=== PATIENT | female | born 1945 | race Caucasian/White ===

== ENCOUNTER 2022-07-08 13:43 | Inpatient (IN) | payer OTHER ==
[~2022-07-08] VITALS: Ht 157.5 cm; Wt 58.5 kg
[2022-07-08 14:30] VITALS: BP_SYST 108
--- NOTE | 2022-07-08 14:37 | NUR ---
Placed in room 2 . Placed on monitoring analyst, blood pressure machine and pulse oximeter. To gown for exam. Side rails up.
--- NOTE | 2022-07-08 15:22 | NUR ---
PT COMES FROM URGENT CARE FOR C/O PETER LOWER EXTREMITIES EDEMA X 3 WEEKS, GRADUALLY GETTING WORSE IN THE LAST WEEK. STATES SHE HAS MODERATE SOB WITH MILD EXERTION,, UNABLE TO WALK WITHOUT ASSISTANCE. DTR AT BEDSIDE. PT DENIES ANY CP, ON RA @95%. RESP EVEN AND UNLABORED, SPEAKING FULL CLEAR SENTENCES. SKIN W/D/I, SCLERA-WNL. AAOX3, LIVES AT HOME. PT ALSO REPORTS LIVER CIRRHOSIS, ABDOMEN LARGE/DISTENDED/SOFT, MILDLY TENDER TO PALPATION. LAST PARACENTESIS 3 YEARS AGO[address] PT OF [address] BEARD IN [place]. WILL CONT TO MONITOR CLOSELY.
--- NOTE | 2022-07-08 16:03 | NUR ---
DR GILLIS IN ROOM FOR EXAM
[2022-07-08 18:34] LABS: BASOPHILS # (AUTO) 0.1 K/uL (0.0-0.2); BASOPHILS % (AUTO) 0.8 % (0.0-2.0); EOSINOPHILS # (AUTO) 0.2 K/uL (0.0-0.4); EOSINOPHILS % (AUTO) 1.4 % (0.0-4.0); HEMATOCRIT 42.1 % (36-48); HEMOGLOBIN 14.5 g/dL (12.0-16.0); LYMPHOCYTES # (AUTO) 1.9 K/uL (1.0-5.5); MEAN CORPUSCULAR HEMOGLOBIN 38 pg (27-31); MEAN CORPUSCULAR HGB CONC 34 % (32-36); MEAN CORPUSCULAR VOLUME 110 fL (79.0-98.0); MONOCYTES # (AUTO) 1.5 K/uL (0.0-1.0); MONOCYTES % (AUTO) 13.8 % (1.7-9.3); NEUTROPHILS # (AUTO) 7.1 K/uL (1.8-7.7); PLATELET COUNT (AUTO) 140 K/uL (130-430); RED BLOOD CELL COUNT(AUTO) 3.82 MIL/uL (4.2-6.2); RED CELL DISTRIBUTION WIDTH 15.7 % (9.0-15.0); WHITE BLOOD COUNT (AUTO) 10.8 K/uL (4.8-10.8)
--- NOTE | 2022-07-08 18:42 | NUR ---
NO ACUTE CHNAGES IN CONDITION, PT USING IPAD IN ROOM, DENIES ANY PAIN OR SOB AT THIS TIME
[2022-07-08 18:47] LABS: ANION GAP 9 (5-15); CALCIUM 9.4 mg/dL (8.4-11.0); CHLORIDE 97 mmol/L (98-107); CREATININE 4.51 mg/dL (0.55-1.30); GLUCOSE 105 mg/dL (70-99); UREA NITROGEN, BLOOD 30 mg/dL (8-21)
[2022-07-08 18:52] LABS: ALANINE AMINOTRANSFERASE 22 U/L (12-78); ALBUMIN 2.2 g/dL (3.4-4.8); ASPARTATE AMINOTRANSFERASE 82 U/L (10-37); TOTAL BILIRUBIN 3.3 mg/dL (0.0-1.0)
--- NOTE | 2022-07-08 19:31 | NUR ---
FIRST CONTACT WITH PT. ASSESSMENT COMPLETED. PT C/O THAT SHE WAS HUNGRY BECAUSE SHE HAD NOT EATEN SINCE 1 PM. PT GIVEN SNACK FROM PT FRIG.
[2022-07-08] MEDS ORDERED: NEU300 PO (20:03)
--- NOTE | 2022-07-08 20:03 | NUR ---
Medication list provided by martinez Mendez. Med rec completed.
[2022-07-08] MEDS ORDERED: AZITHROMYCIN 500 MG in NS 250 ML IV ONE (20:15)
[2022-07-08] MEDS ORDERED: cefTRIAXone 1 GM IVPB PREMIX 50 ML IV ONE (20:15)
--- NOTE | 2022-07-08 20:17 | NUR ---
Note joseone in EDM - 07/08/22 at 2022 by MOHAMUD Admit bed requested Patient will be admitted to care of Dr.RIZVI Stevens Admitted to TELE unit. Diagnosis CIRRHOSIS,WEAKNESS,RENAL FAILURE Inpatient (Yes or No) YES Observation (Yes or No) NO Orientation concerns or request close to nursing station (Yes or No) NO Covid Status NEGATIVE On vent or bipap NO Isolation requirements NO Needs a sitter NO From Home (Yes or if No enter name of facility) YES Requires Dialysis (Yes or No) NO Med Rec Completed (Yes of No) YES
--- NOTE | 2022-07-08 20:23 | NUR ---
Admit bed requested Patient will be admitted to care of Dr.RIZVI Stevens Admitted to TELE unit. Diagnosis CIRRHOSIS,WEAKNESS,RENAL FAILURE Inpatient (Yes or No) YES Observation (Yes or No) NO Orientation concerns or request close to nursing station (Yes or No) NO Covid Status PENDING On vent or bipap NO Isolation requirements NO Needs a sitter NO From Home (Yes or if No enter name of facility) YES Requires Dialysis (Yes or No) NO Med Rec Completed (Yes of No) YES
--- NOTE | 2022-07-08 20:38 | NUR ---
MD GALLARDO @ BEDSIDE TO DISCUSS ADMISSION PLANS WITH PT AND FAMILY.
[2022-07-08] MEDS ORDERED: AZITHROMYCIN 500 MG/VIAL (ZITHROMAX) IV ONE (21:44)
--- NOTE | 2022-07-08 22:00 | NUR ---
PT RESTING QUIETLY WITH NO SIGNS OF DISTRESS.
--- NOTE | 2022-07-08 22:40 | NUR ---
ADMISSION NOTE Received patient from ER via rransom assisting by Kassandra ER nurse endorsed at bedside. Patient admitted with diagnosis of cirrhosis, weakness/renal failure . Patient is awake, alert, oriented X 4. Patient oriented to hospital room, call light, toileting, pain management and safety-teach back done. Patient informed that Aureliano will be his nurse and that her room number is 120-B. Confirmed with Aureliano RN at bedside prior places telemetry box on patient with ,name,and telemetry box number. Personal belongings checked and Belongings List documented. Fall precaution in place, side rails x2. Call light within reach. Endorsed to Aureliano-RN to continuity of care.
[2022-07-08 22:54] VITALS: BP_SYST 115
--- NOTE | 2022-07-08 23:05 | NUR ---
Patient will be admitted to care of DR MOSQUERA. Admitted to TELE unit. Will go to room 120B . Belongings list completed. Complete and up to date summary report printed. SBAR report to be given at bedside with opportunity for questions.
[2022-07-09] VITALS: BP_SYST 118
--- NOTE | 2022-07-09 02:26 | NUR ---
CONSULTATION PAGED REASON FOR CONSULTATION: PNA WAS CONSULT CALLED? Y PERSON WHO WAS NOTIFIED: LD CONSULTING PHYSICIAN: DEN EMBRYOLOGY TEACHER SPECIALTY: ID EMBRYOLOGY TEACHER PHONE NUMBERER: [phone] REQUESTING PHYSICIAN: KARI MOSQUERA
--- NOTE | 2022-07-09 03:59 | NUR ---
CONSULTATION PAGED REASON FOR CONSULTATION: PNA WAS CONSULT CALLED? Y PERSON WHO WAS NOTIFIED: KYLER CONSULTING PHYSICIAN: PAU WOMEN NURSE SPECIALTY: PULMOP WOMEN NURSE PHONE NUMBER: [phone] REQUESTING PHYSICIAN: EVELINE
--- NOTE | 2022-07-09 04:53 | NUR ---
CONSULTATION PAGED REASON FOR CONSULTATION: CIRRHOSIS WAS CONSULT CALLED? Y PERSON WHO WAS NOTIFIED: LD CONSULTING PHYSICIAN: JD MANAGER HOME HEALTHCARE SPECIALTY: GI MANAGER HOME HEALTHCARE PHONE NUMBER: [phone] REQUESTING PHYSICIAN: KARI MOSQUERA
[2022-07-09 08:50] VITALS: BP_SYST 122
[2022-07-09] MEDS: AZITHROMYCIN 500 MG in NS 250 ML IV SCH (09:52)
[2022-07-09] MEDS: cefTRIAXone 1 GM IVPB PREMIX 50 ML IV SCH (09:53)
[2022-07-09 11:19] VITALS: BP_SYST 122
[2022-07-09] MEDS ORDERED: FOLIC ACID 1 MG TABLET PO ONE (13:30)
[2022-07-09] MEDS ORDERED: MULTIVITAMINS TAB 1 TABLET PO ONE (13:30)
[2022-07-09] MEDS ORDERED: THIAMINE HCL 100 MG TABLET PO ONE (13:30)
[2022-07-09 14:14] LABS: ANION GAP 10 (5-15); CALCIUM 8.8 mg/dL (8.4-11.0); CHLORIDE 95 mmol/L (98-107); CREATININE 4.52 mg/dL (0.55-1.30); GLUCOSE 144 mg/dL (70-99); UREA NITROGEN, BLOOD 30 mg/dL (8-21)
[2022-07-09 16:12] VITALS: BP_SYST 127
[2022-07-09] MEDS ORDERED: NALOXONE HCL 0.4 MG/ML AMP (NARCAN) IVP PRN (16:45)
[2022-07-09] MEDS: OCTREOTIDE ACETATE 100 MCG/ML AMP SUBCUT SCH ×2 (16:47→22:45)
[2022-07-09] MEDS: ALBUMIN HUMAN 25% 100 ML IV SCH ×2 (16:47→22:47)
[2022-07-09 20:00] VITALS: BP_SYST 91
[2022-07-10] VITALS: BP_SYST 103
[2022-07-10] MEDS: OCTREOTIDE ACETATE 100 MCG/ML AMP SUBCUT SCH ×3 (05:30→21:41)
[2022-07-10] MEDS: ALBUMIN HUMAN 25% 100 ML IV SCH (05:30)
[2022-07-10 05:51] LABS: BASOPHILS # (AUTO) 0.1 K/uL (0.0-0.2); BASOPHILS % (AUTO) 0.8 % (0.0-2.0); EOSINOPHILS # (AUTO) 0.2 K/uL (0.0-0.4); EOSINOPHILS % (AUTO) 2.3 % (0.0-4.0); HEMATOCRIT 35.4 % (36-48); LYMPHOCYTES # (AUTO) 1.5 K/uL (1.0-5.5); LYMPHOCYTES % (AUTO) 22.4 % (20.5-51.5); MEAN CORPUSCULAR HEMOGLOBIN 38 pg (27-31); MEAN CORPUSCULAR HGB CONC 34 % (32-36); MEAN CORPUSCULAR VOLUME 110 fL (79.0-98.0); MONOCYTES # (AUTO) 0.9 K/uL (0.0-1.0); MONOCYTES % (AUTO) 13.6 % (1.7-9.3); NEUTROPHILS # (AUTO) 4.2 K/uL (1.8-7.7); NEUTROPHILS % (AUTO) 60.9 % (40.0-70.0); PLATELET COUNT (AUTO) 99 K/uL (130-430); RED BLOOD CELL COUNT(AUTO) 3.21 MIL/uL (4.2-6.2); RED CELL DISTRIBUTION WIDTH 15.5 % (9.0-15.0); WHITE BLOOD COUNT (AUTO) 6.9 K/uL (4.8-10.8)
[2022-07-10 06:09] LABS: ALANINE AMINOTRANSFERASE 15 U/L (12-78); ALBUMIN 2.9 g/dL (3.4-4.8); ANION GAP 12 (5-15); ASPARTATE AMINOTRANSFERASE 53 U/L (10-37); CALCIUM 8.8 mg/dL (8.4-11.0); CHLORIDE 98 mmol/L (98-107); CREATININE 4.51 mg/dL (0.55-1.30); GLUCOSE 79 mg/dL (70-99); TOTAL BILIRUBIN 3.1 mg/dL (0.0-1.0); UREA NITROGEN, BLOOD 31 mg/dL (8-21)
[2022-07-10 06:18] LABS: INR 1.6 (0.8-1.2); PROTHROMBIN TIME 16.3 SECS (9.5-12.5)
--- NOTE | 2022-07-10 07:31 | NUR ---
pt had 1 bm last night. pt has been npo since midnight. pt denied pain during shift. abd distended since admission
[2022-07-10 08:00] VITALS: BP_SYST 101
[2022-07-10] MEDS: FOLIC ACID 1 MG TABLET PO SCH (09:34)
[2022-07-10] MEDS: THIAMINE HCL 100 MG TABLET PO SCH (09:35)
[2022-07-10] MEDS: MULTIVITAMINS TAB 1 TABLET PO SCH (09:35)
[2022-07-10] MEDS: AZITHROMYCIN 500 MG in NS 250 ML IV SCH (09:37)
[2022-07-10] MEDS: cefTRIAXone 1 GM IVPB PREMIX 50 ML IV SCH (09:37)
[2022-07-10 13:13] VITALS: BP_SYST 101
[2022-07-10] MEDS: MORPHINE 2 MG/ML INJ. SYRINGE IVP PRN ×2 (14:54→21:48)
[2022-07-10 17:27] VITALS: BP_SYST 147
--- NOTE | 2022-07-10 19:15 | NUR ---
OPENING NOTE REPORT RECEIVED FROM DAYSHIFT NURSE. PATIENT RECEIVED LYING IN BED, AWAKE, WATCHING TV. DENIES PAIN. BREATHING EVEN AND UNLABORED, NO S/S OF ACUTE DISTRESS. IV SITE PATENT, NO SIGNS OF INFILTRATION OR INFECTION NOTED. CALL LIGHT WITH PATIENT. BED ALARM ON. BED IS LOCKED AND AT LOWEST POSITION. WILL CONTINUE TO MONITOR.
[2022-07-10 20:00] VITALS: BP_SYST 114
--- NOTE | 2022-07-10 23:00 | NUR ---
ROUNDS PATIENT IN BED, RESTING. NO SIGNS OF DISCOMFORT. CHEST RISE AND FALL EVEN BILATERALLY. ALL NEEDS MET. WILL MONITOR.
[2022-07-11 01:22] VITALS: BP_SYST 111
--- NOTE | 2022-07-11 03:00 | NUR ---
ROUNDS NO CHANGE FROM PREVIOUS. ALL NEEDS MET. WILL MONITOR.
[2022-07-11] MEDS: OCTREOTIDE ACETATE 100 MCG/ML AMP SUBCUT SCH ×3 (06:10→21:34)
--- NOTE | 2022-07-11 06:48 | NUR ---
CLOSING NOTE PATIENT IN BED, RESTING. NO S/S OF ACUTE DISTRESS. BREATHING EVEN AND UNLABORED. HOB RAISED, NASAL CANULA ATTACHED PROPERLY, ON 2L OF OXYGEN. IV SITE PATENT, NO SIGNS OF INFILTRATION OR INFECTION NOTED. ALL NEEDS MET THROUGHOUT SHIFT. FALL, SAFETY PRECAUTIONS MAINTAINED THROUGHOUT SHIFT. WILL CONTINUE TO MONITOR UNTIL PATIENT CARE IS ENDORSED TO ONCOMING DAYSHIFT NURSE.
--- NOTE | 2022-07-11 07:30 | NUR ---
Initial Note: Report received from night warehouse manager nurse. Awake and alert x4. Call light in reach. Bed in the lowest position. Side rails x2 up. Call light in reach. Instructed to call nurse or nursing aid for any help. Assessment is done and vital checked. Will continue patient care.
[2022-07-11 08:00] VITALS: BP_SYST 113
[2022-07-11 08:06] LABS: FERRITIN 417 ng/mL (15-150)
[2022-07-11] MEDS: cefTRIAXone 1 GM IVPB PREMIX 50 ML IV SCH (08:20)
[2022-07-11] MEDS: FOLIC ACID 1 MG TABLET PO SCH (10:06)
[2022-07-11] MEDS: THIAMINE HCL 100 MG TABLET PO SCH (10:06)
[2022-07-11] MEDS: MULTIVITAMINS TAB 1 TABLET PO SCH (10:06)
[2022-07-11] MEDS: AZITHROMYCIN 500 MG in NS 250 ML IV SCH (10:07)
[2022-07-11] MEDS: MORPHINE 2 MG/ML INJ. SYRINGE IVP PRN (10:12)
--- NOTE | 2022-07-11 10:32 | NUR ---
Note: patient is awake and alert. Complained 7/10 ABD pain. pain med provided. Will continue to monitor.
--- NOTE | 2022-07-11 10:51 | NUR ---
CONSULTATION PAGED/CALLED Reason for Consultation: VIDYA Person Who was Notified: MANUEL Consulting Physician: COLT MCKINNEY Senior Quantity Surveyor Specialty: Ordering Physician: INOCENCIO PÉREZ
[2022-07-11 11:00] LABS: EOSINOPHILS # (AUTO) 0.1 K/uL (0.0-0.4); LYMPHOCYTES # (AUTO) 1.3 K/uL (1.0-5.5); MEAN CORPUSCULAR HEMOGLOBIN 38 pg (27-31); MONOCYTES % (AUTO) 15.1 % (1.7-9.3)
[2022-07-11 11:04] LABS: BASOPHILS # (AUTO) 0.1 K/uL (0.0-0.2); BASOPHILS % (AUTO) 0.7 % (0.0-2.0); EOSINOPHILS % (AUTO) 1.4 % (0.0-4.0); HEMATOCRIT 37.1 % (36-48); HEMOGLOBIN 12.4 g/dL (12.0-16.0); MEAN CORPUSCULAR HGB CONC 33 % (32-36); MEAN CORPUSCULAR VOLUME 114 fL (79.0-98.0); MONOCYTES # (AUTO) 1.5 K/uL (0.0-1.0); PLATELET COUNT (AUTO) 72 K/uL (130-430); RED BLOOD CELL COUNT(AUTO) 3.27 MIL/uL (4.2-6.2); RED CELL DISTRIBUTION WIDTH 15.8 % (9.0-15.0); WHITE BLOOD COUNT (AUTO) 10.1 K/uL (4.8-10.8)
[2022-07-11 11:06] LABS: HEPATITIS A AB, IgM Negative (Negative); HEPATITIS B CORE AB, IgM Negative (Negative); HEPATITIS B SURFACE AG Negative (Negative)
[2022-07-11 11:06] LABS: NEUTROPHILS % (AUTO) 69.8 % (40.0-70.0)
[2022-07-11 11:20] LABS: ANION GAP 14 (5-15); CALCIUM 7.6 mg/dL (8.4-11.0); CHLORIDE 100 mmol/L (98-107); CREATININE 4.41 mg/dL (0.55-1.30); GLUCOSE 111 mg/dL (70-99); UREA NITROGEN, BLOOD 31 mg/dL (8-21)
[2022-07-11 11:22] LABS: HEPATITIS C VIRUS AB Negative <0.8 s/co (0.0-0.7)
--- NOTE | 2022-07-11 11:34 | NUR ---
Note: radiology department called to cancel the paracentesis due to not enough fluid. Patient and family made aware.
[2022-07-11 11:47] LABS: ALANINE AMINOTRANSFERASE 16 U/L (12-78); ALBUMIN 2.5 g/dL (3.4-4.8); ASPARTATE AMINOTRANSFERASE 57 U/L (10-37); BILIRUBIN,DIRECT 1.6 mg/dL (0.0-0.3); TOTAL BILIRUBIN 2.2 mg/dL (0.0-1.0)
[2022-07-11 12:00] VITALS: BP_SYST 96
--- NOTE | 2022-07-11 12:33 | NUR ---
Note: patient is sleeping. No pain or discomfort at this time. Call light in reach. Bed in the lowest position and side rails x2 up. Will continue to monitor.
--- NOTE | 2022-07-11 15:38 | NUR ---
Note: Physical therapy is here to evaluate and excise patient. Patient tolerated well. No pain or discomfort.
[2022-07-11 16:00] VITALS: BP_SYST 100
--- NOTE | 2022-07-11 18:25 | NUR ---
Closing Note: Patient is eating dinner. No pain or discomfort at this time. Call light in reach. Bed in the lowest position and side rails x2 up. Will endorse assistant shift supervisor nurse to continue patient care.
--- NOTE | 2022-07-11 19:15 | NUR ---
OPENING NOTE REPORT RECEIVED FROM DAYSHIFT NURSE. PATIENT RECEIVED LYING IN BED, AWAKE, WATCHING TV. NO S/S OF ACUTE DISTRESS. BREATHING EVEN AND UNLABORED. IV SITE PATENT, NO SIGNS OF INFILTRATION OR INFECTION NOTED. CALL LIGHT WITH PATIENT. BED ALARM ON. BED IS LOCKED AND AT LOWEST POSITION. WILL CONTINUE TO MONITOR.
--- NOTE | 2022-07-11 23:00 | NUR ---
INCONTINENT CARE PATIENT CLEANED. TOLERATED WELL. ALL NEEDS MET. WILL MONITOR.
--- NOTE | 2022-07-12 03:00 | NUR ---
ROUNDS PATIENT IN BED, RESTING. NO SIGNS OF DISCOMFORT. CHEST RISE AND FALL EVEN BILATERALLY. ALL NEEDS MET. WILL MONITOR.
--- NOTE | 2022-07-12 06:28 | NUR ---
CLOSING NOTE PATIENT IN BED, RESTING AT THIS TIME. NO S/S OF ACUTE DISTRESS. BREATHING EVEN AND UNLABORED. HOB RAISED, NASAL CANULA ATTACHED PROPERLY, ON 2L OF OXYGEN. IV SITE PATENT, NO SIGNS OF INFILTRATION OR INFECTION NOTED. ALL NEEDS MET THROUGHOUT SHIFT. FALL, SAFETY PRECAUTIONS MAINTAINED THROUGHOUT SHIFT. WILL CONTINUE TO MONITOR UNTIL PATIENT CARE IS ENDORSED TO ONCOMING DAYSHIFT NURSE.
[2022-07-12] MEDS: OCTREOTIDE ACETATE 100 MCG/ML AMP SUBCUT SCH ×3 (06:37→21:09)
[2022-07-12 08:00] VITALS: BP_SYST 127
[2022-07-12 08:21] LABS: BASOPHILS # (AUTO) 0.1 K/uL (0.0-0.2); BASOPHILS % (AUTO) 0.7 % (0.0-2.0); EOSINOPHILS # (AUTO) 0.1 K/uL (0.0-0.4); EOSINOPHILS % (AUTO) 1.1 % (0.0-4.0); HEMATOCRIT 37.1 % (36-48); HEMOGLOBIN 12.5 g/dL (12.0-16.0); LYMPHOCYTES # (AUTO) 1.5 K/uL (1.0-5.5); LYMPHOCYTES % (AUTO) 13.1 % (20.5-51.5); MEAN CORPUSCULAR HEMOGLOBIN 38 pg (27-31); MEAN CORPUSCULAR HGB CONC 34 % (32-36); MEAN CORPUSCULAR VOLUME 111 fL (79.0-98.0); MONOCYTES # (AUTO) 1.2 K/uL (0.0-1.0); NEUTROPHILS # (AUTO) 8.3 K/uL (1.8-7.7); PLATELET COUNT (AUTO) 84 K/uL (130-430); RED BLOOD CELL COUNT(AUTO) 3.33 MIL/uL (4.2-6.2); RED CELL DISTRIBUTION WIDTH 15.7 % (9.0-15.0); WHITE BLOOD COUNT (AUTO) 11.3 K/uL (4.8-10.8)
[2022-07-12] MEDS: MULTIVITAMINS TAB 1 TABLET PO SCH (08:30)
[2022-07-12] MEDS: THIAMINE HCL 100 MG TABLET PO SCH (08:30)
[2022-07-12] MEDS: FOLIC ACID 1 MG TABLET PO SCH (08:30)
[2022-07-12] MEDS: cefTRIAXone 1 GM IVPB PREMIX 50 ML IV SCH (08:31)
[2022-07-12 08:41] LABS: NEUTROPHILS % (AUTO) 74.1 % (40.0-70.0)
[2022-07-12 08:43] LABS: ALANINE AMINOTRANSFERASE 18 U/L (12-78); ALBUMIN 2.6 g/dL (3.4-4.8); ANION GAP 12 (5-15); ASPARTATE AMINOTRANSFERASE 65 U/L (10-37); C-REACTIVE PROTEIN QUANT 3.5 mg/dL (0-0.5); CHLORIDE 98 mmol/L (98-107); CREATININE 4.97 mg/dL (0.55-1.30); GLUCOSE 83 mg/dL (70-99); PHOSPHORUS 5.8 mg/dL (2.7-4.5); TOTAL BILIRUBIN 2.4 mg/dL (0.0-1.0); UREA NITROGEN, BLOOD 36 mg/dL (8-21)
[2022-07-12 09:00] LABS: ERYTHROCYTE SEDIMENTATION RATE 7 MM/HR (0-20)
[2022-07-12] MEDS: AZITHROMYCIN 500 MG in NS 250 ML IV SCH (09:39)
--- NOTE | 2022-07-12 09:57 | NUR ---
Received DC planning order: CREATIVE ENGAGEMENT DIRECTOR faxed order to [facility] for processing
[2022-07-12 12:00] VITALS: BP_SYST 91
[2022-07-12] MEDS: MORPHINE 2 MG/ML INJ. SYRINGE IVP PRN (13:42)
[2022-07-12 16:00] VITALS: BP_SYST 100
--- NOTE | 2022-07-12 18:34 | NUR ---
pt a&o, c/o pain in abd - morphine given as needed. nephrology saw pt - need to collect urine sample - pt does not have to go - will endorse to next shift. fall precautions in place. call tracy in reach.
[2022-07-12 20:00] VITALS: BP_SYST 106
[2022-07-12] MEDS: MIDODRINE HCL 5 MG TABLET (PROAMATINE) PO SCH (21:09)
--- NOTE | 2022-07-12 23:00 | NUR ---
INCONTINENT CARE PATIENT CLEANED. TOLERATED WELL. ALL NEEDS MET. WILL MONITOR.
[2022-07-13] VITALS: BP_SYST 112
--- NOTE | 2022-07-13 03:00 | NUR ---
ROUNDS PATIENT RESTING, NO SIGNS OF DISCOMFORT. ALL NEEDS MET. WILL MONITOR.
[2022-07-13] MEDS: OCTREOTIDE ACETATE 100 MCG/ML AMP SUBCUT SCH ×3 (05:50→20:37)
[2022-07-13 05:53] LABS: BASOPHILS # (AUTO) 0.4 K/uL (0.0-0.2); EOSINOPHILS # (AUTO) 0.2 K/uL (0.0-0.4); EOSINOPHILS % (AUTO) 0.8 % (0.0-4.0); HEMATOCRIT 33.9 % (36-48); HEMOGLOBIN 11.5 g/dL (12.0-16.0); LYMPHOCYTES # (AUTO) 1.7 K/uL (1.0-5.5); LYMPHOCYTES % (AUTO) 8.7 % (20.5-51.5); MEAN CORPUSCULAR HEMOGLOBIN 37 pg (27-31); MEAN CORPUSCULAR HGB CONC 34 % (32-36); MEAN CORPUSCULAR VOLUME 109 fL (79.0-98.0); MONOCYTES # (AUTO) 1.5 K/uL (0.0-1.0); MONOCYTES % (AUTO) 7.9 % (1.7-9.3); NEUTROPHILS # (AUTO) 15.7 K/uL (1.8-7.7); NEUTROPHILS % (AUTO) 80.6 % (40.0-70.0); PLATELET COUNT (AUTO) 77 K/uL (130-430); RED CELL DISTRIBUTION WIDTH 15.5 % (9.0-15.0); WHITE BLOOD COUNT (AUTO) 19.5 K/uL (4.8-10.8)
[2022-07-13 06:12] LABS: ANION GAP 10 (5-15); C-REACTIVE PROTEIN QUANT 5.9 mg/dL (0-0.5); CALCIUM 7.7 mg/dL (8.4-11.0); CHLORIDE 99 mmol/L (98-107); CREATININE 5.78 mg/dL (0.55-1.30); GLUCOSE 91 mg/dL (70-99); PHOSPHORUS 5.5 mg/dL (2.7-4.5); UREA NITROGEN, BLOOD 41 mg/dL (8-21)
[2022-07-13 06:39] LABS: ERYTHROCYTE SEDIMENTATION RATE 6 MM/HR (0-20)
[2022-07-13 08:00] VITALS: BP_SYST 121
[2022-07-13] MEDS: THIAMINE HCL 100 MG TABLET PO SCH (08:23)
[2022-07-13] MEDS: FOLIC ACID 1 MG TABLET PO SCH (08:23)
[2022-07-13] MEDS: cefTRIAXone 1 GM IVPB PREMIX 50 ML IV SCH (08:23)
[2022-07-13] MEDS: MIDODRINE HCL 5 MG TABLET (PROAMATINE) PO SCH ×3 (08:23→20:29)
[2022-07-13] MEDS: MULTIVITAMINS TAB 1 TABLET PO SCH (08:23)
[2022-07-13] MEDS: AZITHROMYCIN 500 MG in NS 250 ML IV SCH (09:43)
[2022-07-13 12:53] VITALS: BP_SYST 117
[2022-07-13] MEDS: MORPHINE 2 MG/ML INJ. SYRINGE IVP PRN (15:21)
[2022-07-13 16:56] VITALS: BP_SYST 119
[2022-07-13] MEDS ORDERED: ALBUMIN HUMAN 25% 100 ML IV ONE (18:00)
--- NOTE | 2022-07-13 19:05 | NUR ---
pt a&o x4. attempted urine sample via bedpan but pt is incontinent of stool/urine mixed every time. order obtained or in and out and patient is not producing any urine. fall precautions in place, call tracy in reach.
[2022-07-13] MEDS: ALBUMIN HUMAN 25% 100 ML IV SCH (23:13)
[2022-07-14 00:33] VITALS: BP_SYST 118
[2022-07-14 00:56] VITALS: BP_SYST 116
[2022-07-14] MEDS ORDERED: ALBUMIN HUMAN 25% 0 ML IV ONE (04:46)
[2022-07-14] MEDS: ALBUMIN HUMAN 25% 100 ML IV SCH (05:48)
[2022-07-14] MEDS: OCTREOTIDE ACETATE 100 MCG/ML AMP SUBCUT SCH ×3 (05:48→21:13)
--- NOTE | 2022-07-14 07:07 | NUR ---
The patient had a restless night, albumin remains at 6, she received 3 doses of albumin, last dose @ 0600. Chest Xray complete. Patient reminded to where her oxygen.
[2022-07-14 08:12] LABS: ALANINE AMINOTRANSFERASE 12 U/L (12-78); ALBUMIN 3.5 g/dL (3.4-4.8); ANION GAP 13 (5-15); ASPARTATE AMINOTRANSFERASE 40 U/L (10-37); CALCIUM 7.9 mg/dL (8.4-11.0); CHLORIDE 98 mmol/L (98-107); CREATININE 6.39 mg/dL (0.55-1.30); GLUCOSE 118 mg/dL (70-99); PHOSPHORUS 5.5 mg/dL (2.7-4.5); TOTAL BILIRUBIN 2.5 mg/dL (0.0-1.0); UREA NITROGEN, BLOOD 46 mg/dL (8-21)
[2022-07-14 08:34] LABS: BASOPHILS # (AUTO) 0.1 K/uL (0.0-0.2); BASOPHILS % (AUTO) 0.7 % (0.0-2.0); EOSINOPHILS # (AUTO) 0.2 K/uL (0.0-0.4); EOSINOPHILS % (AUTO) 1.8 % (0.0-4.0); HEMOGLOBIN 10.7 g/dL (12.0-16.0); LYMPHOCYTES # (AUTO) 1.2 K/uL (1.0-5.5); LYMPHOCYTES % (AUTO) 10.9 % (20.5-51.5); MEAN CORPUSCULAR HEMOGLOBIN 37 pg (27-31); MEAN CORPUSCULAR HGB CONC 34 % (32-36); MEAN CORPUSCULAR VOLUME 110 fL (79.0-98.0); MONOCYTES # (AUTO) 1.1 K/uL (0.0-1.0); MONOCYTES % (AUTO) 9.6 % (1.7-9.3); NEUTROPHILS # (AUTO) 8.6 K/uL (1.8-7.7); PLATELET COUNT (AUTO) 69 K/uL (130-430); RED CELL DISTRIBUTION WIDTH 15.8 % (9.0-15.0); WHITE BLOOD COUNT (AUTO) 11.1 K/uL (4.8-10.8)
[2022-07-14 08:48] LABS: ERYTHROCYTE SEDIMENTATION RATE 4 MM/HR (0-20)
[2022-07-14 08:54] VITALS: BP_SYST 114
[2022-07-14] MEDS: MULTIVITAMINS TAB 1 TABLET PO SCH (09:01)
[2022-07-14] MEDS: THIAMINE HCL 100 MG TABLET PO SCH (09:01)
[2022-07-14] MEDS: MIDODRINE HCL 5 MG TABLET (PROAMATINE) PO SCH ×3 (09:01→21:13)
[2022-07-14] MEDS: FOLIC ACID 1 MG TABLET PO SCH (09:01)
[2022-07-14] MEDS: cefTRIAXone 1 GM IVPB PREMIX 50 ML IV SCH (09:01)
[2022-07-14 11:35] VITALS: BP_SYST 115
--- NOTE | 2022-07-14 13:00 | NUR ---
Dr. Dow made rounds and saw patient today. made aware that patient had one episode of vomiting, brownish undigested food. Offered patient Anti-Nausea med but patient refused and said that she's okay for now. Dr. Dow ordered to call the daughter to inform her for a possible temporary access for dialysis. Called Vanessa and updated on patient's plan of care. Vanessa said that her daughter Genesis will be here at 2PM to sign the consent. Patient is resting at this time with no s/s of pain, and in no acute distress.
--- NOTE | 2022-07-14 13:47 | NUR ---
Dietitian Recommendations * Continue Cardiac diet *Encourage good PO intakes Submitted for ESSENCE Ward by Bronwyn Webb, MPH, RD Please see Nutrition F/U for further details. Thanks!
--- NOTE | 2022-07-14 14:45 | NUR ---
CONSULTATION PAGED REASON FOR CONSULTATION:DERREK CATH INSERTION WAS CONSULT CALLED?Y PERSON WHO WAS NOTIFIED:DENYS CONSULTING PHYSICIAN:TULIO PERKINS KNIFE EDGER SPECIALTY:SURGEON KNIFE EDGER PHONE NUMBER:[phone] REQUESTING PHYSICIAN:COLT MA
--- NOTE | 2022-07-14 15:15 | NUR ---
A blank POLST form was given to TYE Sorensen at the request of Meli SEGOVIA. POLST form originally requested by TYE Sanchez as a new POLST was going to be completed on behalf of the patient.
--- NOTE | 2022-07-14 15:22 | NUR ---
PHYSICAL THERAPY CO-SIGN The Physical Therapy Progress Notes documented by Supervisor Pile Driving have been reviewed. Reviewed/Co-Signed by: Mason Gallegos Documentation Done by:WILLIAM CARDOSO Addendum: 07/14/22 at 1522 by Mason Gallegos PT Amended: Links added.
--- NOTE | 2022-07-14 15:24 | NUR ---
Nutrition F/U Cured Meats Supervisor reviewed pts current EMR including diet hx, physician notes, nursing notes, pertinent labs/meds/procedures, care trends and care activity. Admitting Diagnosis Cirrhosis, Weakness, Renal Failure Medical History Comment: Per EMR: 76 YOF who presented to the ER via wheelchair assistance by her daughter for generalized weakness and BLE edema. Pt had difficulty ambulating today and required assistance from her daughter. CXR show LLL infiltrate and pleural effusion. - PMH: Liver cirrhosis, neuropathy, breast CA - Past Sx: hysterectomy, mastectomy 07/12: Pt on 2 NC w/ Sandostatin regime. No acute indication for HD at this time. 07/13: Ultrasound shows no ascites. Monitor regime for HD needs. Pending urine studies. Kidney fx worsening. US abd R/O ascites. May need paracentesis to R/O SBP. Subjective Information Cured Meats Supervisor spoke w/ pt at bedside. Pt had 3 episodes of vomiting today and also had diarrhea. Pts abd is very distended and was complaining of abd pain during interview. DI spoke w/ OUTSIDE COLLECTOR (Marisol), and she said pt has been like this all morning. Did not pass out her lunch tray d/t abd pain. Current Diet Order/Nutrition Support Cardiac diet x 5 days Patient/Significant Other Able To Verbalize Education Provided Not Indicated Pertinent Medications MVI, Folic Acid, Morphine, Sandostatin, Thiamine Pertinent Labs WBC 11.1H (trending down), BUN 46H (trending up), Cre 6.39H (trending up), Bg 118H (trending up), Bili 2.5H (trending up), AST 40H (trending down), CRP 6.0H (trending up). Height (Feet) 5 feet Height (Inches) 2.00 inches Weight (Pounds) 129 pounds (Stable since 07/11) Patient Weight 58.513 kg Body Mass Index 23.59 kg/m2 Usual Weight 144 lbs %UBW 90 %IBW 117 [place]/Adjusted Body Weight 110#/50kg Recent Weight Change Yes - 15# unintentional wt loss within 3 months (10% wt change) Weight Status Appropriate Gastrointestinal Symptoms None Last BM Jul 14, 2022 Food Allergies No - per pt report Usual Diet At Home Regular per pt report Skin Integrity Comment: Nic: 15 Wounds: None noted Edema: 2+ pitting on bilat. leg Current % PO Fair; avg 56% x 8 meals (improving) Estimated Energy Expenditure (kcals/day) 0772-5412 (25-30 kcal/kg CBW [59kg] d/t VIDYA, GERIAT maintenance) Estimated Protein Required (g/day) 47-59 (0.8-1 g/kg CBW d/t VIDYA) Estimated Fluid Required (l/day) Defer to MD (VIDYA, paracentesis PRN) Problem/Etiology/Signs/Symptoms (MODIFIED) * Suboptimal oral intake R/T decreased appetite AEB poor PO intake records and pt report having abd discomfort (*Ongoing). Expected Outcomes/Goals * Monitor appetite and PO intakes w/ goal of pt meeting >75% of estimated nutritional needs, nutrition-related labs trending WNL, normal GI function and BM regime, skin integrity w/ wt. maintenance. Dietitian Recommendations * Continue Cardiac diet * Encourage good PO intakes Follow Up High Risk: F/U in 2-3days GS, MPH, RD
[2022-07-14 16:13] LABS: INR 1.7 (0.8-1.2); PROTHROMBIN TIME 17.4 SECS (9.5-12.5)
[2022-07-14 16:18] VITALS: BP_SYST 112
[2022-07-14 20:00] VITALS: BP_SYST 133
--- NOTE | 2022-07-14 20:00 | NUR ---
OPENING NOTES: Patient received from AM shift. Nurse. Patient is in bed resting with no noted s/s of distress noted at this time. Chest rise is even and unlabored on 2L via NC and patient is on tele monitoring. Safety measures are in place as per protocol, call light is within reach. Will resume care and continue to monitor throughout the shift.
--- NOTE | 2022-07-14 23:00 | NUR ---
[id number]: Dr. Roberto Carlos SHAH Called and gave orders for nurse to collect supplies for Dialysis access site. Orders were received to put patient on NPO status and to have HEPARIN 5,000 units available for the procedure. Patient was notified of orders and CONSENT was obtained at this time. Orders carried out.
[2022-07-15 00:05] VITALS: BP_SYST 113
[2022-07-15] MEDS ORDERED: HEPARIN SODIUM, PORCINE 10,000 UNITS/ 10 ML VIAL MC ONE (05:30)
[2022-07-15] MEDS: OCTREOTIDE ACETATE 100 MCG/ML AMP SUBCUT SCH ×3 (05:37→21:01)
--- NOTE | 2022-07-15 05:59 | NUR ---
CLOSING NOTES: Patient is in bed resting no s/s of distress is noted at this time. Chest rise is even and unlabored on 4L via NC. Patient is pending placement of Dialysis access site and remains NPO. Patient has been assessed this shift as indicated and all current shift have been met at this time and safety measures are in place as per protocol. Will differ care to AM shift nurse for continuity of care.
[2022-07-15] MEDS ORDERED: HEPARIN SODIUM,PORCINE 5,000 UNITS/ML VIAL IV ONE (07:30)
[2022-07-15 07:39] LABS: BASOPHILS # (AUTO) 0.1 K/uL (0.0-0.2); BASOPHILS % (AUTO) 0.4 % (0.0-2.0); EOSINOPHILS # (AUTO) 0.1 K/uL (0.0-0.4); EOSINOPHILS % (AUTO) 0.8 % (0.0-4.0); HEMATOCRIT 33.7 % (36-48); HEMOGLOBIN 11.4 g/dL (12.0-16.0); LYMPHOCYTES # (AUTO) 1.3 K/uL (1.0-5.5); LYMPHOCYTES % (AUTO) 8.3 % (20.5-51.5); MEAN CORPUSCULAR HEMOGLOBIN 37 pg (27-31); MEAN CORPUSCULAR HGB CONC 34 % (32-36); MEAN CORPUSCULAR VOLUME 109 fL (79.0-98.0); MONOCYTES # (AUTO) 1.8 K/uL (0.0-1.0); MONOCYTES % (AUTO) 11.3 % (1.7-9.3); NEUTROPHILS # (AUTO) 12.7 K/uL (1.8-7.7); NEUTROPHILS % (AUTO) 79.2 % (40.0-70.0); PLATELET COUNT (AUTO) 87 K/uL (130-430); RED BLOOD CELL COUNT(AUTO) 3.08 MIL/uL (4.2-6.2); RED CELL DISTRIBUTION WIDTH 15.6 % (9.0-15.0)
[2022-07-15 08:00] LABS: ALANINE AMINOTRANSFERASE 11 U/L (12-78); ALBUMIN 2.8 g/dL (3.4-4.8); ANION GAP 12 (5-15); ASPARTATE AMINOTRANSFERASE 43 U/L (10-37); CALCIUM 7.9 mg/dL (8.4-11.0); CHLORIDE 98 mmol/L (98-107); CREATININE 6.65 mg/dL (0.55-1.30); GLUCOSE 88 mg/dL (70-99); PHOSPHORUS 5.9 mg/dL (2.7-4.5); TOTAL BILIRUBIN 2.9 mg/dL (0.0-1.0); UREA NITROGEN, BLOOD 50 mg/dL (8-21)
[2022-07-15 09:09] VITALS: BP_SYST 98
[2022-07-15] MEDS: THIAMINE HCL 100 MG TABLET PO SCH (09:36)
[2022-07-15] MEDS: FOLIC ACID 1 MG TABLET PO SCH (09:37)
[2022-07-15] MEDS: MULTIVITAMINS TAB 1 TABLET PO SCH (09:37)
[2022-07-15] MEDS: MIDODRINE HCL 5 MG TABLET (PROAMATINE) PO SCH ×3 (09:37→21:01)
[2022-07-15] MEDS ORDERED: ALBUMIN HUMAN 25% 100 ML IV ONE ×2 (12:15)
[2022-07-15 12:30] VITALS: BP_SYST 110
[2022-07-15] MEDS ORDERED: HEPARIN SODIUM,PORCINE 5,000 UNITS/ML VIAL MC ONE (13:45)
[2022-07-15] MEDS: cefTRIAXone 1 GM IVPB PREMIX 50 ML IV SCH (14:41)
--- NOTE | 2022-07-15 14:42 | NUR ---
PATIENT IS UNAVAILABLE FOR PT TREATMENT TODAY D/T CURRENTLY RECEIVING HD. WILL TRY AGAIN TOMORROW.
[2022-07-15 16:34] VITALS: BP_SYST 102
[2022-07-15 20:00] VITALS: BP_SYST 117
--- NOTE | 2022-07-15 22:00 | NUR ---
OPENING NOTES: Patient was received from AM shift nurse during change of shift. Patient was in bed with family at bedside and denied any pain or distress at the time. Chest rise even and unlabored on 4L via NC and on Tele monitoring with NSR. RIJ noted for dialysis access with dressing C/D/I. PIV to RFA 22G saline locked, C/D/I. Patient received her first dialysis tx today and is tolerating it well with V/S noted WNL. Patient has call light within reach and safety measures are in place as per protocol. Will resume care and continue to monitor throughout the shift. 2200: Patient has been assessed as per protocol, claire care provided and patient received scheduled medications as ordered. Will continue to monitor throughout the shift.
[2022-07-15] MEDS ORDERED: traMADol HCL HCL 50 MG TABLET (ULTRAM) PO PRN (23:00)
--- NOTE | 2022-07-15 23:23 | NUR ---
MD CALLED: Patient moaning in pain. PRN Morphine was offered but patient refused at this time requesting to try something PO and "not as strong" Dr. MOSQUERA was called and new order for Tramadol PRN was obtained. MD was made aware of patient allergy to Codine as addressed by pharmacy and MD stated it was OK to give because there was no codine in tramadol. Medication was administered. Will continue to monitor.
[2022-07-16] VITALS: BP_SYST 115
[2022-07-16] MEDS: OCTREOTIDE ACETATE 100 MCG/ML AMP SUBCUT SCH ×2 (05:07→17:23)
--- NOTE | 2022-07-16 06:41 | NUR ---
CLOSING NOTES: Patient is in bed resting with no noted s/s of distress noted at this time. Patient is AA&Ox4 able to make needs known with call light within reach, chest rise is even and unlabored on RA and remain on tele monitoring. All current shift needs have been met at this time and safety measures remain in place as per protocol. Will differ care to AM shift nurse for continuity of care.
[2022-07-16 07:54] LABS: BASOPHILS # (AUTO) 0.1 K/uL (0.0-0.2); BASOPHILS % (AUTO) 0.6 % (0.0-2.0); EOSINOPHILS # (AUTO) 0.2 K/uL (0.0-0.4); EOSINOPHILS % (AUTO) 1.5 % (0.0-4.0); HEMATOCRIT 33.2 % (36-48); HEMOGLOBIN 11.1 g/dL (12.0-16.0); LYMPHOCYTES # (AUTO) 1.4 K/uL (1.0-5.5); LYMPHOCYTES % (AUTO) 8.8 % (20.5-51.5); MEAN CORPUSCULAR HEMOGLOBIN 37 pg (27-31); MEAN CORPUSCULAR HGB CONC 34 % (32-36); MEAN CORPUSCULAR VOLUME 111 fL (79.0-98.0); MONOCYTES # (AUTO) 2.2 K/uL (0.0-1.0); MONOCYTES % (AUTO) 13.5 % (1.7-9.3); NEUTROPHILS # (AUTO) 12.3 K/uL (1.8-7.7); NEUTROPHILS % (AUTO) 75.6 % (40.0-70.0); PLATELET COUNT (AUTO) 59 K/uL (130-430); RED CELL DISTRIBUTION WIDTH 16.2 % (9.0-15.0); WHITE BLOOD COUNT (AUTO) 16.3 K/uL (4.8-10.8)
[2022-07-16 08:00] VITALS: BP_SYST 97
--- NOTE | 2022-07-16 08:00 | NUR ---
Initial notes Received patient awake in bed AAOx4 respiration even and unlabored, oxygen saturation at 94% on 2L nasal canula no signs of distress noted. IV to right forearm patent, Right IJ intact. Continue to maintain safety/fall precaution, bed in low position and call light w/in reached
[2022-07-16 08:27] LABS: ANION GAP 9 (5-15); CALCIUM 7.9 mg/dL (8.4-11.0); CHLORIDE 102 mmol/L (98-107); CREATININE 5.36 mg/dL (0.55-1.30); GLUCOSE 97 mg/dL (70-99); UREA NITROGEN, BLOOD 31 mg/dL (8-21)
[2022-07-16] MEDS: FOLIC ACID 1 MG TABLET PO SCH (09:34)
[2022-07-16] MEDS: MULTIVITAMINS TAB 1 TABLET PO SCH (09:34)
[2022-07-16] MEDS: THIAMINE HCL 100 MG TABLET PO SCH (09:35)
[2022-07-16] MEDS: MIDODRINE HCL 5 MG TABLET (PROAMATINE) PO SCH ×2 (09:35→17:39)
[2022-07-16] MEDS: cefTRIAXone 1 GM IVPB PREMIX 50 ML IV SCH (09:36)
--- NOTE | 2022-07-16 10:51 | NUR ---
PHYSICAL THERAPY CO-SIGN The Physical Therapy Progress Notes documented by Db2 Developer have been reviewed. Reviewed/Co-Signed by: Mason Gallegos Documentation Done by:WILLIAM CARDOSO Addendum: 07/16/22 at 1052 by Mason Gallegos PT Amended: Links added.
[2022-07-16 11:20] VITALS: BP_SYST 114
[2022-07-16] MEDS ORDERED: VANCOMYCIN HCL 1,000 MG in NS 250 ML IV ONE (12:00)
[2022-07-16] MEDS ORDERED: PHO667 GT (12:21)
[2022-07-16] MEDS ORDERED: NEPH PO (12:21)
[2022-07-16] MEDS ORDERED: LACT10SO6 PO (12:21)
[2022-07-16] MEDS ORDERED: HEPARIN SODIUM,PORCINE 5,000 UNITS/ML VIAL MC ONE (13:45)
[2022-07-16 16:00] VITALS: BP_SYST 121
[2022-07-16] MEDS: MORPHINE 2 MG/ML INJ. SYRINGE IVP PRN (17:45)
--- NOTE | 2022-07-16 18:45 | NUR ---
Patient resting in bed, no signs of distress. No IV access, all safety secured, bed in low position, call light w/in reached, will endorse
[2022-07-16 20:00] VITALS: BP_SYST 114
[2022-07-17] VITALS: BP_SYST 118
[2022-07-17] MEDS: MIDODRINE HCL 5 MG TABLET (PROAMATINE) PO SCH ×3 (01:38→17:09)
[2022-07-17] MEDS: OCTREOTIDE ACETATE 100 MCG/ML AMP SUBCUT SCH ×3 (01:38→17:10)
[2022-07-17 04:00] VITALS: BP_SYST 113
--- NOTE | 2022-07-17 07:50 | NUR ---
Initial notes Received patient awake in bed AAOx4 respiration even and unlabored, oxygen saturation at 93% on 4L nasal canula no signs of distress noted. IV to right upper arm patent, Right IJ intact. Safety/fall precaution secured, bed in low position and call light w/in reached
[2022-07-17] MEDS: cefTRIAXone 1 GM IVPB PREMIX 50 ML IV SCH (08:12)
[2022-07-17] MEDS: FOLIC ACID 1 MG TABLET PO SCH (08:12)
[2022-07-17] MEDS: THIAMINE HCL 100 MG TABLET PO SCH (08:12)
[2022-07-17] MEDS: MULTIVITAMINS TAB 1 TABLET PO SCH (08:12)
[2022-07-17 08:18] VITALS: BP_SYST 110
[2022-07-17] MEDS ORDERED: FLUCONAZOLE 200 mg/ NS 100 ML IV SCH (10:00)
[2022-07-17] MEDS ORDERED: VANCOMYCIN HCL 1,000 MG in NS 250 ML IV ONE (12:00)
[2022-07-17] MEDS ORDERED: LACTULOSE 20 GM/30 ML UDC PO ONE (12:00)
[2022-07-17 12:05] VITALS: BP_SYST 106
--- NOTE | 2022-07-17 14:16 | NUR ---
RN MEDICALLY CLEARED PATIENT FOR PT TREATMENT. TWO ATTEMPTS WERE MADE TO SEE PATIENT HOWEVER PATIENT WAS LETHARGIC BOTH ATTEMPTS AND REFUSED TREATMENT. WILL TRY AGAIN TOMORROW.
[2022-07-17] MEDS ORDERED: LACTULOSE 20 GM/30 ML UDC PO SCH (15:00)
--- NOTE | 2022-07-17 15:51 | NUR ---
PHYSICAL THERAPY CO-SIGN The Physical Therapy Progress Notes documented by Corporate Planning Manager have been reviewed. Reviewed/Co-Signed by: Mason Gallegos Documentation Done by:WILLIAM CARDOSO Addendum: 07/17/22 at 1552 by Mason Gallegos PT Amended: Links added.
[2022-07-17 16:08] VITALS: BP_SYST 118
[2022-07-17 18:25] VITALS: BP_SYST 122
--- NOTE | 2022-07-17 19:00 | NUR ---
Discharge note Patient discharge to [facility] home room 10A [place]. SBAR Report given to Reyn RN at facility. Discharge instruction package given to personal RS1 ambulance Patient verbalized understanding of transfer and sign consent. Patient in stable condition, no signs of distress, oxygen saturation 94% on 4L nasal canula. ID band removed. IV catheter removed, intact and dressing applied, no active bleeding. Right IJ catheter dialysis access intact. All belongings sent with patient.
--- NOTE | 2022-07-17 19:02 | NUR ---
Nutrition F/U RD submitted for Cargo Agent who reviewed pts current EMR including diet hx, physician notes, nursing notes, pertinent labs/meds/procedures, care trends and care activity. Admitting Diagnosis Cirrhosis, Weakness, Renal Failure Medical History Comment: Per EMR: 76 YOF who presented to the ER via wheelchair assistance by her daughter for generalized weakness and BLE edema. Pt had difficulty ambulating today and required assistance from her daughter. CXR show LLL infiltrate and pleural effusion. Pt is DNR. - PMH: Liver cirrhosis, neuropathy, breast CA - Past Sx: hysterectomy, mastectomy 07/13: Ultrasound shows no ascites. Monitor regime for HD needs. Pending urine studies. Kidney fx worsening. US abd R/O ascites. May need paracentesis to R/O SBP. 07/15 per MD Todd & Katherin: Per Nephro consult, pt most likely has hepatorenal syndrome. Pt received HD today via [facility]. There is coagulopathy and thrombocytopenia. R/O SBP vs. Ileus. Subjective Information Cargo Agent spoke w/ pt and curwwe-cn-khs (Lexy) at bedside. Pt did not touch L, because she did not like the food. Pt requested for hamburger hamlet and soup for dinner. Menu selection and preferences have been updated in [employer]. Hzcoux-so-mpq stated pt will be transferring to [facility] unsure when. Pt still has firm, distended abd. Current Diet Order/Nutrition Support Renal Standard diet x 1 day Patient/Significant Other Able To Verbalize Education Provided Not Indicated Pertinent Medications MVI, Folic Acid, Morphine, Sandostatin, Thiamine, Lactulose, Ultram, MVI, Folic Acid, Thiamine, Morphine. Pertinent Labs 07/16: WBC 16.3H (trending down), Na 135L (trending up), BUN 31H (trending down), Cre 5.36H (trending down). Height (Feet) 5 feet Height (Inches) 2.00 inches Weight (Pounds) 129 pounds (Stable since 07/11) Patient Weight 58.513 kg Body Mass Index 23.59 kg/m2 Usual Weight 144 lbs %UBW 90 %IBW 117 [place]/Adjusted Body Weight 110#/50kg Recent Weight Change Yes - 15# unintentional wt loss within 3 months (10% wt change) Weight Status Appropriate Gastrointestinal Symptoms None Last BM Jul 17, 2022 x 1 Food Allergies No - per pt report Usual Diet At Home Regular per pt report Skin Integrity Comment: Nic: 15 Wounds: None noted Edema: None noted Current % PO Poor; avg 42% x 9 meals (decreasing) Estimated Energy Expenditure (kcals/day) 3124-7739 (30-35cal/kg CBW [59kg] d/t renal insufficiency on HD, GERIAT maintenance) Estimated Protein Required (g/day) 59-71 (1-1.2 g/kg CBW d/t renal insufficiency on HD) Estimated Fluid Required (l/day) Defer to MD (renal insufficiency on HD) Problem/Etiology/Signs/Symptoms (MODIFIED) * Suboptimal oral intake R/T decreased appetite AEB poor PO intake records and pt report not liking the food (*New). * Inadequate oral intake R/T decreased appetite AEB poor PO intake records and pt report having abd discomfort (*Resolved). Expected Outcomes/Goals * Monitor appetite and PO intakes w/ goal of pt meeting >75% of estimated nutritional needs, nutrition-related labs trending WNL, normal GI function and BM regime, skin integrity w/ wt. maintenance. Dietitian Recommendations * Renal Standard diet * Encourage good PO intakes * Adhere to pts food preferences Follow Up High Risk: F/U in 2-3days
--- NOTE | 2022-07-17 19:02 | NUR ---
Dietitian Recommendations * Renal Standard diet * Encourage good PO intakes * Adhere to pts food preferences LP, MS, RD Please refer to Nutrition F/U for details.
== END 2022-07-17 19:30 | DRG 871 ==
LOC: SED 13:43 → STU 20:15 → SMU 07-17 15:59
PROVIDERS: ADMIT Internal Medicine; ATTEND Internal Medicine
PROC: 5A1D70Z Performance of Urinary Filtration, Intermittent, Less than 6 Hours Per Day (ICD-10-PCS; 2022-07-14)
PROC: 5A1D70Z Performance of Urinary Filtration, Intermittent, Less than 6 Hours Per Day (ICD-10-PCS; 2022-07-14)
PROC: 05HM33Z Insertion of Infusion Device into Right Internal Jugular Vein, Percutaneous Approach (ICD-10-PCS; principal; 2022-07-15)
PROC: B543ZZA Ultrasonography of Right Jugular Veins, Guidance (ICD-10-PCS; 2022-07-15)
DX: A41.9 Sepsis, unspecified organism (principal); E43 Unspecified severe protein-calorie malnutrition; J96.00 Acute respiratory failure, unspecified whether with hypoxia or hypercapnia; J15.7 Pneumonia due to Mycoplasma pneumoniae; K76.7 Hepatorenal syndrome; N17.9 Acute kidney failure, unspecified; E87.1 Hypo-osmolality and hyponatremia; E87.20 Acidosis, unspecified; N18.4 Chronic kidney disease, stage 4 (severe); E86.0 Dehydration; D69.6 Thrombocytopenia, unspecified; E83.39 Other disorders of phosphorus metabolism; K76.82 Hepatic encephalopathy; E83.51 Hypocalcemia; Z66 Do not resuscitate; E88.09 Other disorders of plasma-protein metabolism, not elsewhere classified; K70.31 Alcoholic cirrhosis of liver with ascites; D63.1 Anemia in chronic kidney disease; Z20.822 Contact with and (suspected) exposure to COVID-19; F10.10 Alcohol abuse, uncomplicated; Z68.23 Body mass index [BMI] 23.0-23.9, adult; Z88.5 Allergy status to narcotic agent
CPT/HCPCS: 36415; 71045; 76700-TC; 76937; 80048; 80053; 80074; 80202; 82105; 82140; 82248; 82728; 83605; 83735; 84100; 85025; 85610-TC; 85651-TC; 86140; 86738; 86803; 87040; 90935; 90937; 96365; 96368; 97110-GP; 97112-GP; 97116-GP; 97530-GP; 99285; C1751; G0378; J0456; J0696; J1450; J1644; J2270; J2354; J3370; J7030; J7042; J7050; P9046